=== PATIENT | male | born 1990 | race Caucasian/White ===

== ENCOUNTER 2020-01-20 05:31 | Day surgery (SDC) | payer OTHER ==
[~2020-01-20] VITALS: Ht 188 cm; Wt 99.1 kg
[2020-01-20] MEDS ORDERED: LACTATED RINGERS 1,000 ML IV SCH (06:03)
[2020-01-20] MEDS ORDERED: CHLORHEXIDINE 15 ML UDC MM STA (06:04)
[2020-01-20 06:10] VITALS: BP 145/88
[2020-01-20] MEDS ORDERED: VANCOMYCIN 1,000 MG ONE (06:32)
[2020-01-20] MEDS ORDERED: LIDOCAINE/MPF 2%-EPI 1:200K, 20 ML ONE (06:32)
[2020-01-20] MEDS ORDERED: BUPIVACAINE/PF-EPI 0.25% 1:200K ONE (06:32)
[2020-01-20] MEDS ORDERED: DULO20CA45 PO (06:47)
[2020-01-20] MEDS ORDERED: GABA100C PO (06:47)
[2020-01-20] MEDS ORDERED: OXYC-307 PO (06:47)
[2020-01-20] MEDS ORDERED: MELO15TA24 PO (06:47)
[2020-01-20] MEDS ORDERED: EPINEPHRINE 1 MG/ML, 1ML ONE (07:04)
[2020-01-20] MEDS ORDERED: LIDOCAINE/PF 0.5% ,50ML ONE (07:04)
[2020-01-20 07:08] LABS: BASOPHILS # (AUTO) 0.03 x10^3/uL (0-0.1); BASOPHILS % (AUTO) 1 % (0-1); EOSINOPHILS # (AUTO) 0.24 x10^3/uL (0-0.4); EOSINOPHILS % (AUTO) 4 % (1-7); LYMPHOCYTES # (AUTO) 1.39 x10^3/uL (1-3.4); LYMPHOCYTES % (AUTO) 24 % (22-44); MD NO; MEAN CORPUSCULAR HEMOGLOBIN 30.3 pg (27.5-34.5); MEAN CORPUSCULAR HGB CONC 33.5 g/dL (33.2-36.2); MEAN CORPUSCULAR VOLUME 90.3 fL (81-97); MEAN PLATELET VOLUME 8.3 fL (7.4-10.4); MONOCYTES # (AUTO) 0.48 x10^3/uL (0.2-0.8); MONOCYTES % (AUTO) 8 % (2-9); NEUTROPHILS # (AUTO) 3.64 x10^3/uL (1.8-6.8); NEUTROPHILS % (AUTO) 63 % (42-75); PLATELET COUNT 159 x10^3/uL (130-400); RED BLOOD COUNT 4.81 x10^6/uL (4.38-5.82); RED CELL DISTRIBUTION WIDTH 12.7 % (9.4-14.8)
[2020-01-20 07:21] LABS: ALANINE AMINOTRANSFERASE 26 U/L (12-78); ALBUMIN 3.6 g/dL (3.4-5.0); ANION GAP 5 mmol/L (5-15); CALCIUM 8.5 mg/dL (8.5-10.1); CHLORIDE 107 mmol/L (98-107); CREATININE 0.95 mg/dL (0.7-1.3)
[2020-01-20] MEDS ORDERED: ACETAMINOPHEN 500 MG TABLET ONE (07:21)
[2020-01-20 07:23] LABS: ALKALINE PHOSPHATASE 60 U/L (45-117); BILIRUBIN,TOTAL 0.4 mg/dL (0.2-1.0); TOTAL PROTEIN 7.2 g/dL (6.4-8.2)
[2020-01-20] MEDS ORDERED: MIDAZOLAM 1 MG/ML, 2ML ONE (07:24)
[2020-01-20] MEDS ORDERED: FENTANYL PF 250 MCG/5ML ONE (07:24)
[2020-01-20] MEDS ORDERED: LIDOCAINE-MPF 2% ,5ML ONE ×2 (07:26)
[2020-01-20] MEDS ORDERED: DEXAMETHASONE 4 MG/ML, 1ML ONE ×2 (07:27)
[2020-01-20] MEDS ORDERED: KETOROLAC 30 MG/1 ML ONE (07:27)
[2020-01-20] MEDS ORDERED: PROPOFOL 10 MG/ML, 20ML ONE (07:27)
[2020-01-20] MEDS ORDERED: CEFAZOLIN 1,000 MG ONE ×2 (07:27)
[2020-01-20] MEDS ORDERED: ONDANSETRON 2MG/ML, 2ML ONE (07:27)
[2020-01-20] MEDS ORDERED: ACETAMINOPHEN 500 MG TABLET PO ONE (07:30)
[2020-01-20] MEDS ORDERED: GABAPENTIN 300 MG CAPSULE PO ONE (07:30)
[2020-01-20] MEDS ORDERED: OXYcodone IR 5MG TABLET PO ONE (07:30)
[2020-01-20] MEDS ORDERED: SCOPOLAMINE 1MG PATCH TD SCH (07:30)
[2020-01-20] MEDS ORDERED: ROCURONIUM 10 MG/ML,10ML ONE (07:48)
[2020-01-20] MEDS ORDERED: NEOSTIGMINE 1 MG/ML, 10ML ONE (07:48)
[2020-01-20] MEDS ORDERED: GLYCOPYRROLATE 0.2MG/1ML, 5ML ONE (07:48)
[2020-01-20 07:50] LABS: INTERNATIONAL NORMALIZED RATIO 0.99 (0.93-1.1); PROTHROMBIN TIME 10.5 Seconds (9.6-11.5)
[2020-01-20] MEDS ORDERED: HALOPERIDOL 5 MG/ML IV PRN (08:00)
[2020-01-20] MEDS ORDERED: MEPERIDINE/PF 25MG/0.5ML IVPush PRN (08:00)
[2020-01-20] MEDS ORDERED: hydrALAzine 20 MG/ML, 1ML IV PRN (08:00)
[2020-01-20] MEDS ORDERED: METHOCARBAMOL 1,000 MG in DEXTROSE 5% 100 ML IV PRN (08:00)
[2020-01-20] MEDS ORDERED: PROMETHAZINE 25 MG/ML, 1ML IVPush PRN (08:00)
[2020-01-20] MEDS ORDERED: FENTANYL PF 100 MCG/2ML IV PRN (08:00)
[2020-01-20] MEDS ORDERED: DIAZEPAM 5 MG/ML, 2ML IVPush PRN (08:00)
[2020-01-20] MEDS ORDERED: HYDROmorphone 1 MG/ML, 1ML INJ IVPush PRN (08:00)
[2020-01-20] MEDS ORDERED: ONDANSETRON 2MG/ML, 2ML IVPush PRN (08:00)
[2020-01-20] MEDS ORDERED: DIPHENHYDRAMINE 50 MG/ML, 1ML IVPush PRN (08:00)
[2020-01-20] MEDS ORDERED: FENTANYL PF 100 MCG/2ML ONE (10:11)
[2020-01-20] MEDS ORDERED: OXYcodone 5 MG/5 ML ORAL.SOL UDC ONE (10:12)
[2020-01-20] MEDS: OXYcodone 5 MG/5 ML ORAL.SOL UDC PO PRN ×2 (10:12→11:15)
[2020-01-20] MEDS ORDERED: MEPERIDINE/PF 25MG/ML,1ML ONE (10:23)
[2020-01-20] MEDS ORDERED: DIAZEPAM 5 MG TABLET ONE (11:12)
[2020-01-20] MEDS ORDERED: MORPHINE SULFATE 4 MG/ML, 1ML IVPush PRN (11:30)
[2020-01-20] MEDS ORDERED: DIAZEPAM 5 MG TABLET PO ONE (11:30)
[2020-01-20] MEDS ORDERED: morphine SULFATE 10 MG/ML, 1ML ONE (11:31)
== END 2020-01-20 12:05 | disposition home or self-care (01) ==
LOC: OUT 05:31
PROVIDERS: ATTEND Orthopaedic Surgery Orthopaedic Surgery of the Spine
DX: M51.27 Other intervertebral disc displacement, lumbosacral region (principal); Z11.59 Encounter for screening for other viral diseases; F32.9 Major depressive disorder, single episode, unspecified; Z79.1 Long term (current) use of non-steroidal anti-inflammatories (NSAID); Z79.01 Long term (current) use of anticoagulants; Z79.891 Long term (current) use of opiate analgesic; Z79.899 Other long term (current) drug therapy
CPT/HCPCS: 36415; 63030; 71045; 72100; 80053; 85025; 85610; 85730; 87635; 93005; J0171; J0690; J1100; J1885; J2001; J2175; J2250; J2405; J2704; J2710; J3010; J3370; J7120; J3490